=== PATIENT | male | born 1960 | race Caucasian/White ===

== ENCOUNTER 2016-12-21 09:21 | Emergency (ER) | payer OTHER ==
[~2016-12-21] VITALS: Ht 180.3 cm; Wt 77.5 kg
[~2016-12-21 09:21] MED LIST: BENA25TA8 PO; PARO25CR PO; PRED50TA PO; RANI150 PO
[2016-12-21 09:41] VITALS: BP 132/88; PULSE 87; RESP 18; TEMP 98.2; O2SAT 95
[2016-12-21] MEDS ORDERED: PAXI10TA2 PO (09:51)
[2016-12-21] MEDS ORDERED: CHOLESTEROL MED (09:51)
[2016-12-21] MEDS ORDERED: BENZ100 PO (10:08)
[2016-12-21] MEDS ORDERED: SUDA30TA2 PO (10:08)
--- NOTE | 2016-12-21 10:08 | PD ---
HPI Chief Complaint: Cold / Flu Symptoms Time Seen by Provider: 10:01 Travel History International Travel<30 days: No Contact w/Intl Traveler<30days: No Traveled to known affect area: No History of Present Illness HPI 56-year-old male with history of smoking, presents to the ER today for 1 day history of cough, runny nose, throat irritation. He denies any fevers, chest pains, shortness of breath, or other symptoms. He states that there is something going around his work area. Modifying Factors: None Associated Signs & Symptoms: Cough, runny nose, throat irritation Risk Factors: Sick contacts at work PFSH Past Medical History Hx Anticoagulant Therapy: No Anxiety: Yes Cardiovascular Problems: No High Cholesterol: Yes Chemotherapy: No Cerebrovascular Accident: No Diabetes: No Diminished Hearing: No Psychiatric: Yes (ANGER ISSUES) Respiratory: No Past Surgical History Hysterectomy: No Social History Alcohol Use: No Tobacco Use: Yes (1ppd) Substance Use: No Allergies-Medications (Allergen,Severity, Reaction): Coded Allergies: No Known Allergies (Unverified , 12/21/16) Reported Meds & Prescriptions Reported Meds & Active Scripts Active Reported [Cholesterol Med] Unknown Dose Paxil (Paroxetine HCl) 10 Mg Tab 10 Mg PO DAILY Review of Systems Except as stated in HPI: all other systems reviewed are Neg Physical Exam Narrative GENERAL: Well-developed pleasant middle age white male patient who is currently not in acute distress. Awake and oriented 3. SKIN: Focused skin assessment warm/dry. HEAD: Atraumatic. Normocephalic. EYES: Pupils equal and round. No scleral icterus. No injection or drainage. ENT: No nasal bleeding or discharge. Mucous membranes pink and moist. Mild pharyngeal erythema without significant exudates or vesicles. Tonsillar pillars are symmetrical. No uvular edema. NECK: Trachea midline. No JVD. CARDIOVASCULAR: Regular rate and rhythm. No murmur appreciated. RESPIRATORY: No accessory muscle use. Clear to auscultation. Breath sounds equal bilaterally. GASTROINTESTINAL: Abdomen soft, non-tender, nondistended. Hepatic and splenic margins not palpable. MUSCULOSKELETAL: No obvious deformities. No clubbing. No cyanosis. No edema. NEUROLOGICAL: Awake and alert. No obvious cranial nerve deficits. Motor grossly within normal limits. Normal speech. PSYCHIATRIC: Appropriate mood and affect; insight and judgment normal. Data Data Last Documented VS Vital Signs Date Time Temp Pulse Resp B/P Pulse Ox O2 Delivery O2 Flow Rate FiO2 12/21/16 09:41 98.2 87 18 132/88 95 MDM Medical Decision Making Medical Screen Exam Complete: Yes Emergency Medical Condition: Yes Medical Record Reviewed: Yes Differential Diagnosis URI versus pneumonia versus bronchitis Narrative Course Symptoms are indicative of a URI. He has sick contacts as well. Pulmonary exam is essentially unremarkable. I have talked to the patient regarding his smoking and have encouraged smoking cessation since this would likely decrease chances of further respiratory infections. My plan would be to give him symptomatic relief for coughing. Follow-up with primary care physician. Return for any worsening in symptoms as necessary. The plan has been discussed with him and he states understanding. Diagnosis Primary Impression: Upper respiratory infection Med/Other Pt SpecificInfo: Prescription(s) given Scripts Pseudoephedrine (Sudafed)30 Mg Tab30 Mg PO Q6H PRN (NASAL CONGESTION) #12 TAB Ref 0 Prov:Andra Hernandez MD 12/21/16 Benzonatate (Tessalon Perles)100 Mg [id number] Mg PO TID PRN (COUGH) #20 CAP Ref 0 Prov:Andra Hernandez MD 12/21/16 Disposition: 01 DISCHARGE HOME Condition: Stable Andar Hernandez MD Dec 21, 2016 10:08
== END 2016-12-21 10:20 | disposition home or self-care (01) ==
LOC: PHED 09:21
DX: J06.9 Acute upper respiratory infection, unspecified (principal); E78.00 Pure hypercholesterolemia, unspecified; F41.9 Anxiety disorder, unspecified
CPT/HCPCS: 99283